=== PATIENT | female | born 1960 | race Caucasian/White ===

== ENCOUNTER → 2017-05-16 | Outpatient (CLI) | payer BC ==
--- NOTE | 2017-05-18 08:31 | RADIOLOGY IMAGING REPORT ---
FACILITY: [facility] - [place] PATIENT NAME: WILFREDO MITCHELL : [id number] MR: [id number] V: [id number] EXAM DATE: [id number] ORDERING PHYSICIAN: SUKH HUBBARD TECHNOLOGIST: Margret Alston PROCEDURE:BILATERAL DIGITAL SCREENING MAMMOGRAM WITH CAD ASSISTED INTERPRETATION AND 3D BREAST TOMOSYNTHESIS. COMPARISON:Prior mammograms dated 02/24/09, 01/12/07. INDICATIONS:SCREENING FINDINGS: Moderately heterogeneous fibroglandular tissue is seen throughout the breasts. The parenchymal pattern has remained stable when allowing for difference in mammographic technique and patient positioning. There is no evidence of malignant appearing mass, malignant appearing calcification or other secondary sign of malignancy in either breast. DIAGNOSTIC CATEGORY 1--NEGATIVE. RECOMMENDATIONS: ROUTINE MAMMOGRAM AND CLINICAL EVALUATION. IMPRESSION: Bi-RADS 1: No significant abnormality is seen. Images were reviewed with R2CAD and 3D breast tomosynthesis. Dictated by: Catherine Gannon M.D. on 05/17/2017 at 15:34 Transcribed by: RONALD on 05/17/2017 at 19:18 Approved by: Catherine Gannon M.D. on 05/18/2017 at 8:30 [facility]
== END ==
LOC: MAMO 01:33
PROVIDERS: ATTEND Family Medicine
DX: Z12.31 Encounter for screening mammogram for malignant neoplasm of breast (principal)
CPT/HCPCS: 77063; 77067

== ENCOUNTER → 2017-05-18 | Outpatient (CLI) | payer BC ==
[~2017-05-18] MED LIST: BARIUM SULFATE 176 GM BTL PO ONE; BARIUM SULFATE 340 GM POWD ONE
--- NOTE | 2017-05-18 16:59 | RADIOLOGY IMAGING REPORT ---
FACILITY: [facility] PATIENT NAME: Elma Blas : 1960 MR: [id number] V: [id number] EXAM DATE: ORDERING PHYSICIAN: SUKH HUBBARD TECHNOLOGIST: Location: [facility] - [place] Patient: Elma Blas : 1960 Visit/Account:[id number] Date of Sevice: 05/18/2017 Exam type: UPPER GI SERIES W/O AIR History: GERD and abdomen pain Comparison: None. Findings: Double contrast upper GI series was performed with thick and thin barium. There is a small hiatal he rnia is very mild narrowing of the distal esophagus. No mucosal erosion was identified. No abnormal ity of the stomach duodenal bulb or duodenal C-loop was identified. Gastroesophageal reflux was not observed at this time. The fluoroscopy dose area product was 738.93 micro-Phillips per meter squared IMPRESSION: 1. Small hiatal hernia with very mild narrowing of the lower esophagus although gastric esophageal r eflux was not observed at this time. Report Dictated By: Catherine Gannon MD at 05/18/2017 4:52 PM Report E-Signed By: Catherine Gannon MD at 05/18/2017 4:54 PM WSN:[email or web address]
== END ==
LOC: RAD 07:05
PROVIDERS: ATTEND Family Medicine
DX: K44.9 Diaphragmatic hernia without obstruction or gangrene (principal); K22.2 Esophageal obstruction
CPT/HCPCS: 74240

== ENCOUNTER 2018-02-14 12:03 | Emergency (ER) | payer OTHER, BC ==
[2018-02-14] MEDS ORDERED: LEVO112T44 PO (12:14)
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
[2018-02-14 13:56] VITALS: BP 125/92
== END 2018-02-14 13:58 | disposition home or self-care (01) ==
LOC: ER 13:03
DX: M51.36 Other intervertebral disc degeneration, lumbar region (principal); M50.322 Other cervical disc degeneration at C5-C6 level; M50.323 Other cervical disc degeneration at C6-C7 level
CPT/HCPCS: 72040; 99283; L0172